=== PATIENT | male | born 1935 | race Caucasian/White ===

== ENCOUNTER 2022-11-21 08:24 | Emergency (ER) | payer MEDICARE ==
[2022-11-21] MEDS ORDERED: Heparin Sodium 5,000 Units/ML Vial IVPUSH ONE (12:44)
[2022-11-21] MEDS ORDERED: Aspirin 81 MG Tab.Chew PO ONE (12:44)
[2022-11-21] MEDS ORDERED: Heparin Sodium/D5W 25,000 UNITS/500 ML BAG IV SCH (12:45)
[2022-11-21] MEDS ORDERED: Sodium Chloride 0.9% 10 ML Syringe FLUSH PRN (12:48)
== END 2022-11-21 13:48 ==
LOC: JD.ED 08:24
DX: I21.4 Non-ST elevation (NSTEMI) myocardial infarction (principal); R20.0 Anesthesia of skin; I10 Essential (primary) hypertension; Z79.899 Other long term (current) drug therapy
CPT/HCPCS: 36415; 70450; 71045; 80053; 83880; 84484; 85025; 85610; 85730; 93005; 99285; A9270; J1644; J3490; 93010